=== PATIENT | male | born 1975 ===

== ENCOUNTER → 2021-06-06 | Outpatient (CLI) | payer OTHER | LOC: ORTHO 10:25 | PROVIDERS: ATTEND Orthopaedic Surgery | DX: M75.102 Unspecified rotator cuff tear or rupture of left shoulder, not specified as traumatic (principal) | CPT/HCPCS: 99213 ==

== ENCOUNTER → 2021-06-18 | Outpatient (CLI) | payer OTHER ==
--- NOTE | 2021-06-18 11:36 | Diagnostic Imaging Report ---
PROCEDURE: MRI left upper extremity without contrast. TECHNIQUE: Multiplanar, multisequence non contrast-enhanced MRI of the left upper extremity was accomplished. INDICATION: Left shoulder pain, no known injury, history of left shoulder surgery several years ago. COMPARISON: None FINDINGS: No acute fracture is seen in the left shoulder. Alignment appears normal. There is no joint effusion. The supraspinatus tendon is intact. The infraspinatus tendon is intact. The teres minor tendon and subscapularis tendons appear intact. The long head of the biceps tendon is normal in course and signal. The glenoid labrum is suboptimally evaluated in the absence of intra-articular contrast. There does appear to be degenerative tearing throughout the labrum, anteriorly, posteriorly and superiorly. There is a small anterior superior para labral cyst measuring up to 7 mm. The acromioclavicular joint demonstrates severe degenerative change. There is mild subacromial spurring. The coracoclavicular and coracoacromial ligaments are intact. No muscular atrophy is seen. No soft tissue masses or fluid collections are seen. IMPRESSION: 1. No left rotator cuff tear. 2. Tearing of the left glenoid labrum, with small anterior superior para labral cyst. 3. Degenerative changes in the left acromioclavicular joint with subacromial spurring. Dictated by: Dictated on workstation # [id number]
== END ==
LOC: RAD 09:30
PROVIDERS: ATTEND Orthopaedic Surgery
DX: M75.102 Unspecified rotator cuff tear or rupture of left shoulder, not specified as traumatic (principal); M19.012 Primary osteoarthritis, left shoulder; S43.432A Superior glenoid labrum lesion of left shoulder, initial encounter
CPT/HCPCS: 73221

== ENCOUNTER → 2021-06-20 | Outpatient (CLI) | payer OTHER ==
--- NOTE | 2021-06-20 13:28 | Diagnostic Imaging Report ---
INDICATION: Neck pain. Bilateral upper extremity numbness and tingling. Paresthesias. COMPARISON: None FINDINGS: Frontal, lateral, open-mouth, swimmer's views of the cervical spine were obtained. Cervical spine is seen down to the C7 level in the lateral and swimmer's views. C7-T1 intervertebral disc space is obscured. Static alignment shows straightening with slight reversal of normal lordotic curvature. There is no significant anterolisthesis or retrolisthesis. There is no evidence of jumped facets. Open-mouth view shows normal C1-C2 alignment. Vertebral body heights are maintained. There is no acute fracture. There is mild multilevel intervertebral disc height loss. Surrounding soft tissue structures are unremarkable. IMPRESSION: 1. Degenerative changes, but no acute fracture or dislocation of the visualized portions of the cervical spine as described above. Dictated by: Dictated on workstation # [id number]
== END ==
LOC: ORTHO 10:17
PROVIDERS: ATTEND Orthopaedic Surgery
DX: M47.22 Other spondylosis with radiculopathy, cervical region (principal)
CPT/HCPCS: 72040; 99213

== ENCOUNTER → 2021-08-09 | Outpatient (CLI) | payer OTHER ==
--- NOTE | 2021-08-09 08:45 | Diagnostic Imaging Report ---
CLINICAL INDICATION: Patient having neck pain with bilateral hand numbness. No known injury. EXAM: MRI of the cervical spine performed without IV contrast. Sequences include sagittal T2, sagittal T1, sagittal T2 fat-sat, and axial T2. COMPARISON: X-ray cervical spine dated 06/20/2021. FINDINGS: There is no acute cervical spine fracture or dislocation. There is minimal Modic type II degenerative signal changes anteriorly at the C4-C5 region. There are small spurs anteriorly involving the mid cervical spine. Limited visualization of posterior fossa is unremarkable. Cervical spinal cord is normal cord caliber with no abnormal signal. There is no significant paraspinal soft tissue abnormality. C1-C2: Unremarkable. C2-C3: Unremarkable. C3-C4: There is a small left-sided uncinate spur which causes moderate left neural foramen narrowing. There is no significant central canal or right neural foramen narrowing. C4-C5: There is a small central posterior disk protrusion/herniation. There is mild bilateral neural foramen narrowing. There is mild central canal stenosis. C5-C6: There is a small left paracentral/left subarticular disk protrusion/herniation which causes at least moderate left neural foramen narrowing. There is mild bilateral facet arthropathy. There is mild right neural foramen narrowing and moderate central canal stenosis. C6-C7: Unremarkable. C7-T1: There is moderate right facet arthropathy and at least mild to moderate right neural foramen narrowing. There is no significant left neural foramen narrowing and no significant central canal stenosis. IMPRESSION: 1: There is multilevel cervical spine degenerative disease which is described in detail above. 2: There is moderate central canal stenosis at C5-C6 level due to a small left paracentral/left subarticular disk herniation and mild facet arthropathy. There is moderate left neural foramen narrowing at this level. Dictated by: Dictated on workstation # [id number]
== END ==
LOC: RAD 08:00
PROVIDERS: ATTEND Orthopaedic Surgery
DX: M47.22 Other spondylosis with radiculopathy, cervical region (principal); M48.02 Spinal stenosis, cervical region; M46.02 Spinal enthesopathy, cervical region; M47.813 Spondylosis without myelopathy or radiculopathy, cervicothoracic region; M50.121 Cervical disc disorder at C4-C5 level with radiculopathy
CPT/HCPCS: 72141